=== PATIENT | female | born 1990 | race Two or more races ===

== ENCOUNTER 2019-02-15 22:14 | Inpatient (IN) | payer MEDICAID ==
[~2019-02-15] VITALS: Ht 162.6 cm; Wt 51.7 kg
--- NOTE | 2019-02-15 22:40 | NUR ---
TO BED 1 AMBULATORY C/O L ARM PAIN X5DAYS, SWELLING, AND ITCHING X5 DAYS. NOTED SWELLING FROM THE L ELBOW EXTENDING TO L WRIST, SKIN WARM TO TOUCH. PT AAOX4 NO ACUTE DISTRESS NOTED, RESP EVEN AND UNLABORED. ER MD AT BEDSIDE TO EVAL PT WITH ORDERS RECEIVED. WILL CARRY OUT ORDERS.
[2019-02-15] MEDS ORDERED: VANCOMYCIN 1 GM VIAL ONE (22:49)
[2019-02-15] MEDS ORDERED: VANCOMYCIN 1 GM in IV D5W 250 ML IV ONE (23:00)
--- NOTE | 2019-02-15 23:01 | NUR ---
CALLED FOR BED, TURNED IN MOVE SHEET. PT GOING TO BED 313-2
[2019-02-15 23:02] LABS: BASOPHILS % (AUTO) 0.3 % (0.0-2.0); EOSINOPHILS % (AUTO) 6.1 % (0.0-6.0); HEMATOCRIT 38 % (33-45); HEMOGLOBIN 13.2 g/dL (11.5-14.8); LYMPHOCYTES # (AUTO) 2.4 /CMM (0.8-4.8); LYMPHOCYTES % (AUTO) 27.1 % (20.0-44.0); MEAN CORPUSCULAR HGB CONC 35 g/dl (31.0-36.0); MEAN CORPUSCULAR VOLUME 89 fL (82-100); MONOCYTES # (AUTO) 0.7 /CMM (0.1-1.30); MONOCYTES % (AUTO) 7.8 % (2.0-12.0); NEUTROPHILS # (AUTO) 5.2 /CMM (1.8-8.9); NEUTROPHILS % (AUTO) 58.7 % (43.0-81.0); PLATELET COUNT (AUTO) 342 /CMM (150-450); RED BLOOD CELL COUNT(AUTO) 4.29 MIL/uL (4.0-5.2); WHITE BLOOD COUNT (AUTO) 8.8 K/uL (4.3-11.0)
[2019-02-15 23:13] LABS: CALCIUM, SERUM 8.6 mg/dL (8.5-10.1); CREATININE 0.9 mg/dL (0.6-1.3); POTASSIUM 3.6 mmol/L (3.5-5.1)
[2019-02-15] MEDS ORDERED: diphenhydrAMINE HCL 50 MG/ML VIAL IV ONE (23:30)
[2019-02-15] MEDS ORDERED: diphenhydrAMINE HCL 50 MG/ML VIAL ONE (23:32)
[2019-02-16 00:30] VITALS: BP 96/84
[2019-02-16] MEDS ORDERED: IV NS 0.9% 1,000 ML IV PRN (00:59)
[2019-02-16] MEDS ORDERED: ACETAMINOPHEN 325 MG TABLET PO PRN (01:00)
[2019-02-16] MEDS ORDERED: ZOLPIDEM TARTRATE 5 MG TABLET PO PRN (01:00)
[2019-02-16] MEDS ORDERED: Z GUARD REMEDY 2 OZ OINT TP PRN (01:00)
[2019-02-16] MEDS ORDERED: ONDANSETRON HCL/PF 4 MG/2 ML VIAL IVP PRN (01:00)
[2019-02-16] MEDS ORDERED: HYDROCODONE/APAP 5/325MG 1 EACH TABLET PO PRN (01:00)
[2019-02-16] MEDS ORDERED: FEE PK DOSING 1 MIN EA MC ONE (01:32)
--- NOTE | 2019-02-16 07:35 | NUR ---
MS RN OPENING NOTES Received Patient awake and resting in bed. A/O x 4. VS stable with no acute distress. Breathing even and unlabored on room air with no respiratory distress. Denies pain. 18g RAC clean, dry, intact and flushing well with NS running at 75ml/hr. Safety precautions in place. Bed locked and set to lowest position with side rails x 2 up. All needs rendered at this time. Will continue to monitor.
[2019-02-16 08:00] VITALS: BP 112/58
[2019-02-16] MEDS ORDERED: SULF1TAB48 PO (08:52)
[2019-02-16] MEDS ORDERED: AMOX500C2 PO (08:52)
[2019-02-16] MEDS ORDERED: VANCOMYCIN 1 GM in IV D5W 250 ML IV SCH (11:00)
--- NOTE | 2019-02-16 14:15 | NUR ---
MS BEER MERCHANT NOTES Patient discharged for HOME at this time. Patient in stable condition. VS stable with no acute distress. Breathing even and unlabored on room air with no respiratory distress. Denies pain. Wound assessment pictures completed and placed in chart per protocol. Medication reconciliation and discharge orders reviewed and explained to Patient. Patient verbalized understanding. All belongings with Patient. Patient will follow up with primary MD in 1 week. Escorted Patient to the lobby for safety. Patient picked up by friend, [place].
== END 2019-02-16 14:30 | disposition home or self-care (01) | DRG 383 ==
LOC: ER 22:16 → MED 23:32
PROVIDERS: ADMIT Nurse Practitioner Acute Care; ATTEND Nurse Practitioner Acute Care
DX: L03.114 Cellulitis of left upper limb (principal); J45.909 Unspecified asthma, uncomplicated; Z98.51 Tubal ligation status; S60.562A Insect bite (nonvenomous) of left hand, initial encounter; W57.XXXA Bitten or stung by nonvenomous insect and other nonvenomous arthropods, initial encounter; Y93.H2 Activity, gardening and landscaping; Y92.009 Unspecified place in unspecified non-institutional (private) residence as the place of occurrence of the external cause
CPT/HCPCS: 36415; 80048-TC; 83605-TC; 85025-TC; 85730-TC; 87040-TC; 87081-TC; 93307-TC; G0378; J1200; J3370; J7030; J7060